=== PATIENT | male | born 1975 | race Caucasian/White ===

== ENCOUNTER 2020-09-21 02:20 | Emergency (ER) | payer SELFPAY ==
[~2020-09-21 02:20] MED LIST: BACTRIM 400-801 EACH PO; BACTRIM DS TAB1 EACH PO; CEPHALEXIN500 MG PO; ENDOCET 5-3251 EACH PO; TOPICAINE 530 GM TP; TOPICAINE30 GM TOP; VIBRAMYCIN100 MG PO
[2020-09-21] MEDS ORDERED: LODINE CAP 300300 MG PO (03:30)
[2020-09-21] MEDS ORDERED: CLEOCIN HCL150 MG PO (03:30)
== END 2020-09-21 03:45 | disposition home or self-care (01) ==
LOC: ER1 02:20
DX: L02.811 Cutaneous abscess of head [any part, except face] (principal); L03.811 Cellulitis of head [any part, except face]; F17.210 Nicotine dependence, cigarettes, uncomplicated; Z88.5 Allergy status to narcotic agent; Z88.0 Allergy status to penicillin
CPT/HCPCS: 10060; 87070; 87077; 87186; 87205; 96374; 99283

== ENCOUNTER 2021-05-18 05:46 | Emergency (ER) | payer OTHER ==
[~2021-05-18 05:46] MED LIST changes: +CLEOCIN HCL150 MG PO; +LODINE CAP 300300 MG PO
[2021-05-18] MEDS ORDERED: BACTRIM DS TAB1 EACH PO (06:48)
[2021-05-18] MEDS ORDERED: BACTROBAN OINT22 GM EXT (06:48)
== END 2021-05-18 07:00 | disposition home or self-care (01) ==
LOC: ER1 05:46
DX: R21 Rash and other nonspecific skin eruption (principal); F17.210 Nicotine dependence, cigarettes, uncomplicated; Z88.5 Allergy status to narcotic agent; Z88.0 Allergy status to penicillin
CPT/HCPCS: 99282

== ENCOUNTER 2022-02-08 21:54 | Emergency (ER) | payer OTHER ==
[~2022-02-08 21:54] MED LIST changes: +BACTROBAN OINT22 GM EXT
[2022-02-08 22:59] LABS: HEMOGLOBIN 13.7 gm/dl (14.0-17.5); RED BLOOD COUNT 4.28 M/UL (4.20-5.50); WHITE BLOOD COUNT 14.7 K/UL (4.5-11.0)
[2022-02-08 23:03] LABS: BUN/CREATININE RATIO 13 (0-10)
== END 2022-02-09 05:35 | disposition home or self-care (01) ==
LOC: ER1 21:54
PROVIDERS: Physician Assistant
DX: L02.212 Cutaneous abscess of back [any part, except buttock and flank] (principal); F17.200 Nicotine dependence, unspecified, uncomplicated; Z88.0 Allergy status to penicillin
CPT/HCPCS: 10060; 80053; 83605; 85025; 87070; 87077; 87186; 87205; 99283